=== PATIENT | female | born 1955 | race Caucasian/White ===

== ENCOUNTER 2016-05-25 10:37 | Emergency (ER) | payer MEDICAID ==
[~2016-05-25] VITALS: Ht 160 cm; Wt 74.8 kg
[~2016-05-25 10:37] MED LIST: ABILIFY10 MG; ALBUTEROL2 PUFFS/17 IN; BACTRIM DS 8001 TAB PO; BACTROBAN2% TP; BIAXIN500 MG PO; CIPRO 250MG TA250 MG PO; CIPRO 500MG TA500 MG PO; MEDROL 4MG. DOSE4 MG PO; Monodox100 MG PO; PHENERGAN 25MG.25 M1 PO; PREDNISONE20 MG PO; PYRIDIUM 200MG200 MG PO; SYMBICORT1 AER IH
--- NOTE | 2016-05-25 11:17 | Emergency Room Report ---
History of Present Illness Time Seen by [id number] Presenting Problem in Triage Pt arrived:Walked Presenting Problem:pt has been treated for for left back and radiating left side groin pain for last couple of weeks. pt was seen initially and thought to have a pulled muscle. without improvement, began experiencing "pressure" to groin that she has been having minimal relief with her bowel movments with. pt denies issues with bm. denies pain or dysuria. pt states she has a history of chronic uti's in the past. 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 N Clinical Suspician of Infection? N Mental Status: 1 - Regular (Normal Baseline) Sepsis Risk:Low Sepsis Risk Have you (or family members/close friends) recently traveled outside the [place]? N If Yes, where/when: Have you had exposure to infectious disease within the past month? TB? Other? Specify: Source patient, RN notes reviewed Exam Limitations no limitations Comment Pt. saw Dr Hoover about 3 weeks ago with pain in the left flank and felt it was a strain. Treated with a Prednisone taper and got some better then pain in LLQ and left groin. Treated for a UTI with Amoxicillin but has not gotten any better. She is post menopausal but no vaginal bleeding and no problem with BM' s. Has never had a colonoscopy and not had a PAP smear in several years. No fever. She has had a history of kidney stones but says this does not feel like a stone Cardiac Chest Pain Chest pain indicative of cardiac No ALLERGIES Coded Allergies: cephalexin (From KEFLEX) (Mild, 05/25/16) Home Medications Active Scripts Albuterol (Albuterol Inhaler 17GM) 1-2 PUFFS IN Q4H #1 INH Prov: 07/28/10 Reported Medications BUDESONIDE/FORMOTEROL FUMARATE (Symbicort 80-4.5 Mcg Inhaler) 2 PUFFS IH NEEDED MUPIROCIN 2% (Bactroban Oint) 0 GM TP DAILY #22 SULFAMETHOXAZOLE/TRIMETHOPRIM (Sulfamethoxazole-Tmp Ds Tablet) 1 TAB PO BID #20 History Medical History General CAD? No Angina: Yes VT: No Hypertension? No Hyperlipidemia? No CHF? Yes DVT? No PE? No COPD? No Asthma? Yes Anemia? No GERD? No Gastric ulcers? No GI Bleed? No Hernia? No Thyroid Problems? No Hypothyroidism? No CVA? No Seizures? No Diabetes? No Renal Insuffiency? No End Stage Renal Disease? No UTI? Yes Stones? No BPH? No GB Disease: Yes Nephritic Syndrome? No Asplenia? No Hepatitis? No Sickle Cell Disease? No Arthritis? No Migraines? No Cataracts? No Glaucoma? No MRSA? No HIV? No TB? No Anxiety? No Depression? No Cancer? Yes Site: CERVICAL CANCER Immunization Hx Ped.Immunizations UTD Yes DT/Tetanus > 10 YRS Surgical Hx Previous Surgery?Y TONSILS APPY RT LEG D AND C CHOLECYSTECTOMY Family History Family Hx Diabetes No CAD Yes Hypertension Yes Hyperlipidemia Yes Cancer Yes TB No Social History Smoking Hx Smoker: Current Every Day Smoker Tobacco: Yes Type Cigarettes Packs/day 1 1/2 - 2 Packs Alcohol Alcohol: No Review of Systems All Other Systems Reviewed and Negative Constitutional see HPI Gastrointestinal see HPI Genitourinary see HPI. Musculoskeletal see HPI Physical Exam Vital Signs Vital Signs Date Time Temp Pulse Resp B/P Pulse O2 O2 Flow FiO2 Ox Delivery Rate 05/25 1314 85 18 153/86 98 05/25 1247 87 18 143/79 97 05/25 1049 97.3 85 18 144/88 95 05/25 1046 97.3 85 18 144/88 95 General Appearance normal appearance, WD/WN, no apparent distress Respiratory Status No: respiratory distress. Lung Sounds bilateral: normal breath sounds. Cardiovascular normal exam, regular rate/rhythm Gastrointestinal tenderness (in LLQ) Neurologic alert, leisure travel agent II-XII nml as tested Medical Decision Making LABS/Meds/Orders Pt receiving controlled substance in ED? No Results/Orders Laboratory Tests 05/25/16 1100: Sodium 140, Potassium 3.4 L, Chloride 104, Carbon Dioxide 27, BUN 15, Creatinine 0.7, Estimated Creat Clear 100, Estimated GFR (MDRD) 85, Glucose 111 H, Calcium 8.6, Total Bilirubin 0.4, AST 14 L, ALT 36, Alkaline Phosphatase 90, Troponin I < 0.02, Total Protein 7.1, Albumin 3.4, Globulin 3.7 H, Albumin/ Globulin Ratio 0.9 L, Amylase 47, Lipase 156, WBC 9.3, RBC 5.49 H, Hgb 16.2, Hct 48.6 H, MCV 88.4, RDW 13.6, Plt Count 288, MPV 5.9 L, Gran % 62.3, Gran # 5.8, Lymphocytes % 31.2, Monocytes % 3.5, Eosinophils % 2.6, Basophils % 0.3, Lymphocytes # 2.9, Monocytes # 0.3, Eosinophils # 0.2, Basophils # 0.0, PUBS MCHC 33.3, MCH 29.5 05/25/16 1045: Urine Color YELLOW, Urine Appearance CLEAR, Urine pH 5.5, Ur Specific [place] 1.025, Urine Protein NEGATIVE, Urine Ketones NEGATIVE, Urine Blood NEGATIVE, Urine Nitrate NEGATIVE, Urine Bilirubin NEGATIVE, Urine Urobilinogen 1.0, Ur Leukocyte Esterase NEGATIVE, Urine WBC 3-5, Ur Squamous Epith Cells 5-10, Urine Bacteria 1+, Urine Mucus 1+, Urine Glucose NEGATIVE Current Medication Orders Sig/Tess Start time Last Medication Dose Route Stop Time Status Admin Diatrizoate Meglum/ 30 ML ONCE ONE 05/25 1115 DC 05/25 Diatrizoate Sod PO 05/25 1116 1115 Sodium Chloride 1,000 ML .Q8H 05/25 1115 AC 05/25 IV 05/25 2307 1116 Sodium Chloride 10 ML PRN PRN 05/25 1115 AC IV 05/26 1107 Sodium Chloride 1,000 ML .STK-MED ONE 05/25 1112 DC IV Diatrizoate Meglum/ 0 .STK-MED ONE 05/25 1111 DC Diatrizoate Sod .ROUTE Sodium Chloride 10 ML PRN PRN 05/25 1100 AC IV 05/26 1100 Orders Procedure Date/time Status DIET-NOTHING BY MOUTH 05/25 D Active OP COURTSEY MEAL 05/[address] ABD & PELVIS W/O CONTRAST 05/25 1238 Active URINALYSIS/COMPLETE 05/[address] ABD/PELVIS REQ 05/25 1107 Complete IV SALINE LOCK 05/25 1100 Active TROPONIN I 05/25 1100 Complete LIPASE 05/25 1100 Complete CBC WITH AUTO DIFF 05/25 1100 Complete CHEM 12 PROFILE 05/25 1100 Complete AMYLASE 05/25 1100 Complete Departure Departure Time of Disposition 1351 Disposition DC Home or Self Care(routine) Clinical Impression Primary Impression: Diverticulosis large intestine w/o perforation or abscess w/ o bleeding Secondary Impressions: Abdominal pain Condition STABLE Patient Instructions DI for Diverticulosis Additional Instructions Use antibiotics as directed and follow dietary precautions....avoid nuts and seeds Discharge Counseling Counseled pt/family regarding diagnosis, test results, medications/RX, home care, follow up needs Prescriptions Current Visit Scripts Ciprofloxacin HCl (Cipro 500MG TAB) 500 MG PO BID #20 TAB Metronidazole (Flagyl) 500 MG PO BID #20 TAB ED Critical Care Critical Care No If Critical Care minutes are documented, the time involved in the performance of seperately reportable procedures was not counted toward critical care time documented. I directly delivered medical care to this critically ill and/or injured patient. Timely evaluation and treatment was necessary to address the significant organ system(s) dysfunction present in this patient. at 1355
[2016-05-25 11:19] LABS: HEMOGLOBIN 16.2 g/dL (12.2-16.2); LYMPH # 2.9 K/mm3 (0.7-4.5); LYMPH % 31.2 % (10-50.0)
[2016-05-25 11:21] LABS: URINE BILIRUBIN - DIPSTICK NEGATIVE (NEG); URINE BLOOD NEGATIVE (NEG)
[2016-05-25 11:27] LABS: BUN 15 mg/dL (7-18)
[2016-05-25 11:28] LABS: GFR (ESTIMATED) 85 ML/MIN (59-)
[2016-05-25] MEDS ORDERED: CIPRO 500MG TA500 MG PO (13:54)
[2016-05-25] MEDS ORDERED: FLAGYL500 M1 PO (13:54)
[2016-05-25 14:51] VITALS: BP 142/78
--- NOTE | 2016-05-26 06:48 | RADIOLOGY REPORT PS360 ---
CT ABD PELVIS W/O CONTRAST CLINICAL INDICATION: Localized left lower quadrant pain LLQ PAIN ORDERING PHYSICIAN: Kay Field MD PATIENT AGE: 60 years COMPARISON: None TECHNIQUE: Axial images obtained with sagittal and coronal reformats. PROCEDURE: Oral Contrast: Redicat IV Contrast: None . FINDINGS: Lower thorax: Small hiatal hernia with mild thickening of the GE junction ABDOMEN: Liver: No masses or biliary dilatation. Gallbladder: Cholecystectomy. No ductal dilatation Pancreas: No masses or peripancreatic fluid collections. Spleen: Unremarkable. Adrenals: Unremarkable Kidneys/ureters: No masses. No renal calculi. No hydronephrosis. No perinephric fluid collections. No ureteral dilatation or obvious ureteral calculi. Stomach bowel: Diverticulosis of the descending and sigmoid colon. No evidence of diverticulitis. Appendix: Surgically absent PELVIS: Reproductive: Unremarkable Bladder: Nondistended. No obvious stones or masses. ABDOMEN & PELVIS: Peritoneum: No abnormal fluid collections. No obvious inflammatory changes. No free air. Lymph nodes: There are few scattered small nodes in the mesenteric axis Vasculature: No evidence of abdominal aortic aneurysm. No retroperitoneal hemorrhage evident. Bones: Grade 1 spondylitic spondylolisthesis of L5 on S1 with pars defect on the right. Intramedullary ronni in the right femur IMPRESSION: 1. No acute intra-abdominal or pelvic pathology. 2. Sigmoid and descending colon diverticulosis without diverticulitis
== END 2016-05-25 14:52 | disposition home or self-care (01) ==
LOC: ER 10:37
PROVIDERS: General Practice
DX: R10.30 Lower abdominal pain, unspecified (principal); K57.30 Diverticulosis of large intestine without perforation or abscess without bleeding

== ENCOUNTER → 2017-01-14 | Outpatient (CLI) | payer MEDICAID ==
[2017-01-14 18:48] LABS: HEMOGLOBIN 16.7 g/dL (12.2-16.2)
[2017-01-14 18:49] LABS: LYMPH # 3.5 K/mm3 (0.7-4.5)
[2017-01-14 19:59] LABS: BUN 18 mg/dL (7-18)
[2017-01-14 20:04] LABS: GFR (ESTIMATED) 73 ML/MIN (59-)
== END ==
LOC: LAB 17:53
PROVIDERS: Nurse Practitioner Family
DX: R53.83 Other fatigue (principal)

== ENCOUNTER → 2017-01-29 | Outpatient (CLI) | payer MEDICAID ==
[~2017-01-29] MED LIST changes: +FLAGYL500 M1 PO
--- NOTE | 2017-01-29 15:19 | CARDIOVASCULAR REPORT ---
"Cerebrovascular Exam Indications: 785.9 Bruit. IMPRESSIONS 1. The bilateral vertebral arteries are patent with normal antegrade flow. 2. Study suggests less than 20% stenosis involving the right internal carotid artery and the left internal carotid artery. History: A bruit of the left carotid artery. Carotid duplex study. Complete study and Doppler flow study including spectral analysis, color and thakur scale imaging. Height: Height: 160cm. Height: 63in. Weight: Weight: 85.3kg. Weight: 187.6lb. Body mass index: BMI: 33.3kg/m^2. Body surface area: BSA: 1.98m^2. Location: Vascular laboratory. Patient status: Outpatient. Tables: Arterial flow: + +--------+--------+ |Location |V sys |V ed | + +--------+--------+ |Right CCA - proximal|99.8cm/s|20.4cm/s| + +--------+--------+ |Right CCA - distal |80.1cm/s|24.4cm/s| + +--------+--------+ |Right ECA |86.4cm/s|--------| + +--------+--------+ |Right ICA - proximal|52.2cm/s|22.6cm/s| + +--------+--------+ |Right ICA - mid |77.1cm/s|28.6cm/s| + +--------+--------+ |Right ICA - distal |82.4cm/s|28.1cm/s| + +--------+--------+ |Right vertebral |43.3cm/s|--------| + +--------+--------+ |Left CCA - proximal |126cm/s |22.3cm/s| + +--------+--------+ |Left CCA - distal |104cm/s |23cm/s | + +--------+--------+ |Left ECA |103cm/s |--------| + +--------+--------+ |Left ICA - proximal |81cm/s |21.6cm/s| + +--------+--------+ |Left ICA - mid |90.1cm/s|32.8cm/s| + +--------+--------+ |Left ICA - distal |88.7cm/s|34.2cm/s| + +--------+--------+ |Left vertebral |40.5cm/s|--------| + +--------+--------+ Velocity ratios: + + + + + + | |Right, V sys|Right, V ed|Left, V sys|Left, V ed| + + + + + + |Max ICA/dist CCA|1.03 |1.17 |0.87 |1.49 | + + + + + + (Report amended ) Electronically signed by: Adam Lord [id number]"
== END ==
LOC: RT 14:30
DX: R09.89 Other specified symptoms and signs involving the circulatory and respiratory systems (principal)

== ENCOUNTER → 2017-02-21 | Outpatient (CLI) | payer MEDICAID | LOC: LAB 12:35 | DX: E01.0 Iodine-deficiency related diffuse (endemic) goiter (principal) ==

== ENCOUNTER → 2017-02-25 | Outpatient (CLI) | payer MEDICAID ==
--- NOTE | 2017-02-25 14:48 | RADIOLOGY REPORT PS360 ---
CARDIOLITE SPECT MYOCARDIAL PERFUSION SCAN, REST AND STRESS: EXERCISE STRESS [facility] REVIEW QGS EF AND WALL MOTION EVALUATION: QPS - PERFUSION EVALUATION HISTORY: C.P., DYSPNEA, ABN EKG, RESTLESS SLEEP, SNORING TOB USE DOSE: 10.69 mCi technetium 99m mibi intravenously at rest followed by 32.8 mCi technetium 99m mibi following the intravenous ministration of 0.4 mg of Lexiscan. Resting blood pressure is 164/79. Stress blood pressure 154//80. FINDINGS: Ejection fraction is calculated to be 50%. Stress images reveal severely decreased activity in the inferior apical wall mildly decreased in the anterior wall while rest images reveal persistent decrease in the inferior apical wall and worsening activity in the septum and anterior wall IMPRESSION: High risk abnormal stress test demonstrating previous transmural myocardial infarction involving the inferior and apical boss with no reversible ischemia. Reverse redistribution in the anterior wall with previous nontransmural anterior wall myocardial infarction. Reduced ejection fraction with regional wall motion abnormalities in the apex and anterior wall
--- NOTE | 2017-02-25 14:48 | RADIOLOGY REPORT PS360 ---
CARDIOLITE SPECT MYOCARDIAL PERFUSION SCAN, REST AND STRESS: EXERCISE STRESS [facility] REVIEW QGS EF AND WALL MOTION EVALUATION: QPS - PERFUSION EVALUATION HISTORY: C.P., DYSPNEA, ABN EKG, RESTLESS SLEEP, SNORING TOB USE DOSE: 10.69 mCi technetium 99m mibi intravenously at rest followed by 32.8 mCi technetium 99m mibi following the intravenous ministration of 0.4 mg of Lexiscan. Resting blood pressure is 164/79. Stress blood pressure 154//80. FINDINGS: Ejection fraction is calculated to be 50%. Stress images reveal severely decreased activity in the inferior apical wall mildly decreased in the anterior wall while rest images reveal persistent decrease in the inferior apical wall and worsening activity in the septum and anterior wall IMPRESSION: High risk abnormal stress test demonstrating previous transmural myocardial infarction involving the inferior and apical boss with no reversible ischemia. Reverse redistribution in the anterior wall with previous nontransmural anterior wall myocardial infarction. Reduced ejection fraction with regional wall motion abnormalities in the apex and anterior wall
--- NOTE | 2017-02-25 19:57 | RADIOLOGY REPORT PS360 ---
PROCEDURE: 2-D M-mode and color Doppler study INDICATIONS FOR THE TEST: Chest pain X COPDX Heart Murmur Tobacco SmokingXX Palpitations Fatigue Syncope Edema Hypertension Diabetes Mellitus Rheumatic Fever SOBXDOE Obesity Hyperlipidemia Family History HD Additional History PATIENT INFORMATION HEIGHT: 63 WEIGHT:188 GENDER: Female B/P:164/79 2-D/M-MODE INTERPRETATION: 2-D MEASUREMENTS OBSERVED VALUES IN CMS Right Ventricular Dimension (RVDd) 2.9 Interventricular Septum (Thickness)(IVsd) .7 Left Ventricular Internal Dimensions(LVIDd) 5.6 Left Ventricular Posterior Wall (Thickness)(LVPWd) .9 Aortic Root 2.9 Aortic Cusp Separation 2.1 Left Atrial Dimensions (LAD) 3.2 2D 1. Left atrium is mildly enlarged, left ventricle is normal size, there is no concentric left ventricular hypertrophy, visually estimated ejection fraction of 55% with no obvious regional wall motion abnormality, endocardial surfaces are somewhat poorly visualized. 2. The right atrium is mildly enlarged, right ventricle is mildly dilated with normal contractility. 3. The aortic valve is minimally thickened and fibrosed. 4. The mitral and tricuspid valve are grossly normal. 5. The pulmonic valve is poorly visualized 6. No significant pericardial effusion noted. DOPPLER INTERROGATION: Doppler interrogation of the aortic, mitral and tricuspid valvular presence of mild mitral and tricuspid regurgitation, tricuspid regurgitant jet velocity is insufficient for calculation of the right ventricular systolic pressure, grade 1 diastolic dysfunction seen with tissue Doppler evidence of raised left atrial pressure. CONCLUSION: 1. Mild biatrial enlargement, normal left ventricular size, visually estimated ejection fraction 55% no obvious regional wall motion abnormality, endocardial surfaces are somewhat poorly visualized., Grade 1 diastolic dysfunction seen without tissue Doppler evidence of raised left atrial pressure. 2. Mildly enlarged right ventricle with normal contractility. 3. Mild mitral and tricuspid regurgitation. 4. No significant pericardial effusion noted.
== END ==
LOC: RAD 05:44
DX: R07.9 Chest pain, unspecified (principal); R06.00 Dyspnea, unspecified; R94.31 Abnormal electrocardiogram [ECG] [EKG]; R06.83 Snoring; G47.10 Hypersomnia, unspecified; Z72.0 Tobacco use
CPT/HCPCS: A9502; J2785

== ENCOUNTER → 2017-03-19 | Day surgery (SDC) | payer MEDICAID ==
[2017-03-19 08:34] LABS: HEMOGLOBIN 16.7 g/dL (12.2-16.2); LYMPH # 2.5 K/mm3 (0.7-4.5); LYMPH % 24.7 % (10-50.0)
[2017-03-19 08:43] LABS: BUN 16 mg/dL (7-18)
[2017-03-19 08:44] LABS: GFR (ESTIMATED) 73 ML/MIN (59-)
--- NOTE | 2017-03-19 09:40 | RADIOLOGY REPORT PS360 ---
CARDIAC CATHETERIZATION DATE OF CATHETERIZATION:03/19/2017 9:21 AM PROCEDURES: 1. Left heart catheterization 2. Left ventriculogram 3. Selective coronary angiography INDICATION FOR TEST: 1. Abnormal Myoview 2. Angina pectoris 3. Risk factors for coronary artery disease Informed consent was obtained prior to the procedure. COMPLICATIONS: None ESTIMATED BLOOD LOSS: Less than 10 ml. TECHNIQUE: One percent lidocaine used to anesthetize the right anterior aspect of the wrist. The right radial artery was accessed via the Seldinger technique. A 6 [place] sheath was placed in the right radial artery. 2.5 mg of verapamil, 800 mcg of nitroglycerin and 5000 U Heparin were given through the arterial sheath. The trap catheter was also used to perform left heart catheterization and left ventriculography. At the end of the procedure the patient was transferred to the post-op holding area in stable condition for arterial sheath removal. ANGIOGRAPHIC RESULTS: 1. The left main artery normal 2. The left anterior descending artery has proximal 30% concentric stenosis with mid vessel mild luminal irregularities 3. The circumflex artery is a dominant vessel and has mid vessel 20-30% eccentric stenosis 4. The right coronary artery nondominant normal 5. The MURPHY ventriculogram reveals served 55% 6. The left ventricular end-diastolic pressure mildly elevated at 20 mmHg IMPRESSION: 1. Mild nonflow limiting coronary artery disease . 2. Preserved ejection fraction of 55% 3. Mildly elevated LVEDP PLAN: 1. Risk factor modification 2. Mild diuretics might help lower patient's LVEDP and alleviate some symptoms 3. Cardiac rehabilitation 4. Avoidance of tobacco products
[2017-03-19 13:30] VITALS: BP 139/68
== END ==
LOC: CATHLAB 07:33
PROVIDERS: Internal Medicine
PROC: B2111ZZ Fluoroscopy of Multiple Coronary Arteries using Low Osmolar Contrast (ICD-10-PCS; 2017-03-19)
PROC: B2151ZZ Fluoroscopy of Left Heart using Low Osmolar Contrast (ICD-10-PCS; 2017-03-19)
PROC: 4A023N7 Measurement of Cardiac Sampling and Pressure, Left Heart, Percutaneous Approach (ICD-10-PCS; principal; 2017-03-19 08:30)
DX: I25.119 Atherosclerotic heart disease of native coronary artery with unspecified angina pectoris (principal); Z72.0 Tobacco use; R94.39 Abnormal result of other cardiovascular function study; I50.30 Unspecified diastolic (congestive) heart failure
CPT/HCPCS: C1725; C1769; J1644; Q9967

== ENCOUNTER → 2017-03-27 | Outpatient (CLI) | payer MEDICAID | LOC: SL 20:19 | DX: G47.9 Sleep disorder, unspecified (principal); G47.10 Hypersomnia, unspecified; R06.83 Snoring; I10 Essential (primary) hypertension ==